=== PATIENT | female | born 1995 | race Caucasian/White ===

== ENCOUNTER 2020-07-14 10:10 | Observation (INO) ==
[2020-07-14] MEDS ORDERED: SODIUM CHLORIDE 0.9% 1000ML 2,000 ML IV ONE (11:22)
[2020-07-14] MEDS ORDERED: GI COCKTAIL ED USE PO ONE (11:22)
--- NOTE | 2020-07-14 11:30 | Emergency Department Note ---
Impression & Plan Eosinophilic esophagitis, Esophageal dysphagia, Leukopenia ED Provider Note NAME: SERGEI CALDERON AGE: 24 SEX: F : 1995 ARRIVES VIA: Walk-In INFORMANT: Patient ED PROVIDER(S): Jeff Duvall DO CHIEF COMPLAINT: trouble swallowing HPI: Patient is a 22-year-old female who presents to ER for trouble swallowing. She was diagnosed with EOE by [facility] about 2 weeks ago after an EGD which she had dilation. Recently over the past 48 hours she has been having increasing trouble swallowing which includes liquids. She was having food get stuck last night. She was able to get down a protein shake. She denies any headache or change in vision. No chest pain or shortness of breath. No nausea, vomiting, or diarrhea. No dysuria, urgency, or frequency. No other exacerbating or remitting factors. ROS: See above HPI for pertinent positives & negatives. A total of 10 systems reviewed and were otherwise negative. PAST MEDICAL HISTORY:See Below PAST SURGICAL HISTORY:See Below FAMILY HISTORY:See Below SOCIAL HISTORY:See Below HOME MEDICATIONS:See Below ALLERGIES:See Below VITALS:See Below PHYSICAL EXAMINATION: GENERAL: Sitting up in bed, alert, well appearing, well nourished, no distress, non-toxic EYE EXAM: normal conjunctiva. OROPHARYNX: no exudate, no erythema, lips, buccal mucosa, and tongue normal and mucous membranes are moist NECK: supple, no nuchal rigidity, no adenopathy, non-tender LUNGS: Clear to auscultation. Normal chest wall mechanics HEART: no murmurs, S1 normal and S2 normal ABDOMEN: abdomen soft, non-tender, normo-active bowel sounds, no masses, no rebound or guarding. UPPER EXTREMITIES: upper extremities are grossly normal. LOWER EXTREMITIES: No pitting edema. NEURO EXAM: Normal sensorium, cranial nerves II-XII grossly intact, normal speech, no gross weakness of arms, no gross weakness of legs. MEDICAL DECISION MAKING: Patient is a 24-year-old female with a past medical history eosinophilic esophagitis recently diagnosed and dilated within the past 2 weeks that presents the ER for trouble eating and drinking which started yesterday. IV was dosed blood work was obtained. Labs show mild leukopenia. No significant leukocytosis. BMP with mild hyponatremia 135. LFTs bilirubin was unremarkable. Lipase was unremarkable. UA was clean. Discussed with gastroenterology. They recommended admission for scope. Patient was given a GI cocktail which did help a little bit. She was given IV fluids. Discussed with hospitalist Dr. Chavez for further evaluation. Triage Nursing notes reviewed. Limited review of prior medical records performed Vital Signs: reviewed and remarkable for tachy Differential diagnosis: Differential diagnoses includes but is not limited to gastritis, peptic ulcer disease, GERD, gallbladder disease, pancreatitis, small bowel obstruction, acute coronary syndrome, pericarditis, ischemic bowel, irritable bowel disease, irritable bowel syndrome, appendicitis, diverticulitis, malignancy, hernia, urinary tract infection, torsion, perforation, trauma, infectious. ER treatment provided: See below Diagnostics interpreted by me: ECG: none Cardiac Monitoring: An order was placed for continuous cardiac monitoring. The monitor shows a rate of 82 with sinus rhythm. Laboratory studies: As stated above and show below. Imaging studies: Portable AP upright 1 view the chest shows no focal infiltrate or pneumothorax Consultation(s): Discussed with Dr. Rivera recommend admission for further evaluation Discussed with hospitalist for further evaluation Dr. Glasgow Procedures: none Critical Care: None Past Med/Surg History Medical History (Updated 07/14/20 @ 15:03 by Jeff Duvall DO) Dysphagia Eosinophilic esophagitis Surgical History History of wisdom tooth extraction Hx of sinus surgery Family History Grandmother (Maternal) Diabetes Grandfather (Paternal) Diabetes Heart disease Myocardial infarction Father Dyslipidemia Mother Dyslipidemia Other Breast cancer No family history of adverse response to anesthesia Denies family history of Ovarian cancer Prostate cancer Lung cancer Colorectal cancer Hypertension Social History Smoking Status: Never smoker Tobacco Type: E-cigarettes / Vaping Number of Years Since Quit: 2; Second Hand Exposure: No; Hx Alcohol Use: Yes Alcohol type: beer and hard liquor Alcohol Intake Frequency: 2-4 x/Month Hx Substance Use: No Preferred Language: Korean Communication Ability: Effective 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 Beliefs That Will Affect Care: None marital status: Single Current Living Situation: Alone current occupational status: employed and student 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 How many Children do You have: 0 Feels Safe at Home: Yes Assistive Devices: Contacts and Glasses Allergies Allergies Allergy/AdvReac Type Severity Reaction Status Date / Time pollen extracts Allergy Intermediate SNEEZING, Verified 07/14/20 11:55 CONGESTION Home Meds Home Medications Medication Instructions Recorded Confirmed norgestimate-ethinyl estradiol 1 tab PO HS 12/07/19 07/14/20 [Sprintec (28)] Previous Rx's Medication Instructions Recorded pantoprazole 40 mg tablet,delayed 40 mg PO BID #180 tab 07/04/20 release Results & Data (ED) Vital Signs Vital Signs - 24 hr 07/14/20 10:46 07/14/20 13:19 Temperature 36.4 C L Temperature Source Temporal Artery Scan Pulse Rate 101 H 87 Pulse Rate [Apical] 87 Pulse Rhythm Regular Pulse Rhythm [Apical] Regular Pulse Strength [Apical] Normal Respiratory Rate 18 18 Respiratory Effort / Characteristics Non-Labored Spontaneous Respiratory Depth Normal Respiratory Pattern Regular Blood Pressure 123/87 Blood Pressure [Left Arm] 114/73 Blood Pressure Mean 99 Blood Pressure Mean [Left Arm] 86 Blood Pressure Position [Left Arm] Semi-fowlers Pulse Oximetry 99 100 Oxygen Delivery Method Room Air Room Air Sepsis Recent Fever Within 48 Hours No Sepsis New/Unexplained Change in Mental Status N/A Sepsis Action Taken by Nursing No Action Required Laboratory Data Result diagrams: 07/14/20 11:17 07/14/20 11:17 Lab Results 07/14/20 07/14/20 07/14/20 Range/Units 11:17 11:17 11:17 WBC 4.75 L (4.8-10.8) K/uL RBC 4.83 (4.2-5.4) M/uL Hgb 14.7 (12.0-16.0) g/dL Hct 43.1 (37-47) % MCV 89.2 (80-100) fL MCH 30.4 (25-34) pg MCHC 34.1 (32-36) g/dL RDW Std Deviation 41.2 (36.4-46.3) fL RDW Coeff of Lisseth 12.7 (11.5-14.5) % Plt Count 301 (130-400) K/uL MPV 8.9 (7.4-10.4) fL Immature Gran % (Auto) 0.2 % Neut % (Auto) 53.7 % Lymph % (Auto) 31.4 % [place] % (Auto) 10.7 % Eos % (Auto) 3.6 % Baso % (Auto) 0.4 % Neut # (Auto) 2.55 (1.4-6.5) K/uL Lymph # (Auto) 1.49 (1.2-3.4) K/uL [place] # (Auto) 0.51 (0.11-0.59) K/uL Eos # (Auto) 0.17 (0-0.5) K/uL Baso # (Auto) 0.02 (0-0.2) K/uL Immature Gran # (Auto) 0.01 (0.00-0.02) K/uL Sodium 135 L (136-145) mmol/L Potassium 3.8 (3.5-5.1) mmol/L Chloride 105 (98-107) mmol/L Carbon Dioxide 26 (21-32) mmol/L Anion Gap 4.0 (3-11) BUN 12 (7-18) mg/dl Creatinine 0.80 (0.6-1.2) mg/dl Est Cr Clr Drug Dosing 102.6 ml/min Est GFR ( Amer) 121.3 ml/min Est GFR (Non-Af Amer) 104.7 ml/min BUN/Creatinine Ratio 14.5 (10-20) Glucose 89 (70-99) mg/dl Calcium 9.5 (8.5-10.1) mg/dl Total Bilirubin 0.4 (0.2-1) mg/dl AST 16 (15-37) U/L ALT 30 (12-78) U/L Alkaline Phosphatase 69 (45-117) U/L Total Protein 8.2 (6.4-8.2) gm/dl Albumin 4.0 (3.4-5.0) gm/dl Globulin 4.2 H (2.5-4.0) gm/dl Albumin/Globulin Ratio 1.0 (0.9-2) Lipase 124 (73-393) U/L Urine Color Yellow Urine Appearance Clear (Clear) Urine pH 8.0 H (4.5-7.5) Ur Specific [place] 1.009 (1.000-1.030) Urine Protein Negative (Negative) Urine Glucose (UA) Negative (Negative) Urine Ketones Negative (Negative) Urine Blood Negative (Negative) Urine Nitrite Negative (Negative) Urine Bilirubin Negative (Negative) Urine Urobilinogen Negative (Negative) Ur Leukocyte Esterase Trace H (Negative) Urine WBC (Auto) 1-5 (0-5) /hpf Urine RBC (Auto) 0-4 (0-4) /hpf U Hyaline Cast (Auto) 1-5 (0-5) /lpf U Epithel Cells (Auto) >30 H (0-5) /lpf Urine Bacteria (Auto) Negative (Negative) COVID-19 Eval Order SARS-CoV-2 (PCR) (Negative) 07/14/20 07/14/20 Range/Units 13:18 13:18 WBC (4.8-10.8) K/uL RBC (4.2-5.4) M/uL Hgb (12.0-16.0) g/dL Hct (37-47) % MCV (80-100) fL MCH (25-34) pg MCHC (32-36) g/dL RDW Std Deviation (36.4-46.3) fL RDW Coeff of Lisseth (11.5-14.5) % Plt Count (130-400) K/uL MPV (7.4-10.4) fL Immature Gran % (Auto) % Neut % (Auto) % Lymph % (Auto) % [place] % (Auto) % Eos % (Auto) % Baso % (Auto) % Neut # (Auto) (1.4-6.5) K/uL Lymph # (Auto) (1.2-3.4) K/uL [place] # (Auto) (0.11-0.59) K/uL Eos # (Auto) (0-0.5) K/uL Baso # (Auto) (0-0.2) K/uL Immature Gran # (Auto) (0.00-0.02) K/uL Sodium (136-145) mmol/L Potassium (3.5-5.1) mmol/L Chloride (98-107) mmol/L Carbon Dioxide (21-32) mmol/L Anion Gap (3-11) BUN (7-18) mg/dl Creatinine (0.6-1.2) mg/dl Est Cr Clr Drug Dosing ml/min Est GFR ( Amer) ml/min Est GFR (Non-Af Amer) ml/min BUN/Creatinine Ratio (10-20) Glucose (70-99) mg/dl Calcium (8.5-10.1) mg/dl Total Bilirubin (0.2-1) mg/dl AST (15-37) U/L ALT (12-78) U/L Alkaline Phosphatase (45-117) U/L Total Protein (6.4-8.2) gm/dl Albumin (3.4-5.0) gm/dl Globulin (2.5-4.0) gm/dl Albumin/Globulin Ratio (0.9-2) Lipase (73-393) U/L Urine Color Urine Appearance (Clear) Urine pH (4.5-7.5) Ur Specific [place] (1.000-1.030) Urine Protein (Negative) Urine Glucose (UA) (Negative) Urine Ketones (Negative) Urine Blood (Negative) Urine Nitrite (Negative) Urine Bilirubin (Negative) Urine Urobilinogen (Negative) Ur Leukocyte Esterase (Negative) Urine WBC (Auto) (0-5) /hpf Urine RBC (Auto) (0-4) /hpf U Hyaline Cast (Auto) (0-5) /lpf U Epithel Cells (Auto) (0-5) /lpf Urine Bacteria (Auto) (Negative) COVID-19 Eval Order Covid19 at [facility] SARS-CoV-2 (PCR) NEGATIVE (Negative) Administered Medications Discontinued Medications Al Hydrox/Mg Hydrox/Simethicone (Gi Cocktail Ed Use) 1 dose PO ONE ONE Stop: 07/14/20 11:23 Last Admin: 07/14/20 11:48 Dose: 1 dose Documented by: [id number] Sodium Chloride (Nss 1000ml) 2,000 mls @ 999 mls/hr IV .Q2H1M ONE Stop: 07/14/20 13:22 Last Infusion: 07/14/20 13:55 Dose: 0 mls/hr Documented by: [id number] Admin: 07/14/20 11:48 Dose: 999 mls/hr Documented by: [id number] Imaging Data Radiologist's Impression: Chest X-Ray 07/14/20 12:57 XR chest 1V portable CLINICAL HISTORY: Preadmission chest x-ray. Respiratory symptoms worrisome for Covid 19 infection COMPARISON STUDY: No previous studies for comparison. FINDINGS: The cardiac and mediastinal contours are normal. There is no evidence of focal pulmonary consolidation. There is no evidence of failure. No pleural effusions are visualized.[ IMPRESSION: No active disease in the chest. ACT 112: Negative or not required by law. Electronically signed by: Leon Pettit M.D. 07/14/2020 1:36 PM Discharge Plan Visit Data Chief Complaint: Throat Pain Stated Complaint: CANT SWALLOW ED Provider: Jeff Duvall Discharge Problem: Eosinophilic esophagitis, Esophageal dysphagia, Leukopenia Forms Stand Alone Forms: [facility] [place] Prescriptions Prescriptions: No Action pantoprazole 40 mg tablet,delayed release (DR/EC) 40 mg PO BID Qty: 180 RF: 3 norgestimate-ethinyl estradiol [Sprintec (28)] 0.25-35 mg-mcg Tablet 1 tab PO HS RF: 0 Discharge Problem: Leukopenia Qualifiers: Leukopenia type: unspecified Qualified Code(s): D72.819 - Decreased white blood cell count, unspecified
[2020-07-14 11:55] LABS: BUN Creatinine Ratio 14.5 (10-20); Calcium 9.5 mg/dl (8.5-10.1); Creatinine Clr Calc Pharmacy 102.6 ml/min; Est GFR (African American) 121.3 ml/min; Est GFR (Non-African American) 104.7 ml/min; Potassium 3.8 mmol/L (3.5-5.1)
[2020-07-14 11:57] LABS: Bilirubin,Total 0.4 mg/dl (0.2-1); Globulin 4.2 gm/dl (2.5-4.0); Total Protein 8.2 gm/dl (6.4-8.2)
[2020-07-14 12:04] LABS: Appearance Urine Clear (Clear); Bacteria Urine Automated Negative (Negative); Bilirubin Urine Negative (Negative); Blood Urine Negative (Negative); Color Urine Yellow; Epithelial Cell Urine Auto >30 /lpf (0-5); Glucose Urine UA Negative (Negative); Ketones Urine Negative (Negative); Leukocyte Esterase Urine Trace (Negative); Nitrite Urine Negative (Negative); Protein Urine Negative (Negative); RBC Urine Automated 0-4 /hpf (0-4); Specific Gravity Urine 1.009 (1.000-1.030); Urobilinogen Urine Negative (Negative)
[2020-07-14 12:13] LABS: Basophils # (auto) 0.02 K/uL (0-0.2); Basophils % (auto) 0.4 %; Eosinophils # (auto) 0.17 K/uL (0-0.5); Eosinophils % (auto) 3.6 %; Hematocrit (blood only) 43.1 % (37-47); Hemoglobin 14.7 g/dL (12.0-16.0); Immature Granulocytes # (auto) 0.01 K/uL (0.00-0.02); Immature Granulocytes % (auto) 0.2 %; Lymphocytes # (auto) 1.49 K/uL (1.2-3.4); Lymphocytes % (auto) 31.4 %; Mean Corpuscular Hemoglobin 30.4 pg (25-34); Mean Corpuscular Hgb Conc 34.1 g/dL (32-36); Mean Corpuscular Volume 89.2 fL (80-100); Mean Platelet Volume 8.9 fL (7.4-10.4); Monocytes # (auto) 0.51 K/uL (0.11-0.59); Monocytes % (auto) 10.7 %; Neutrophils # (auto) 2.55 K/uL (1.4-6.5); Neutrophils % (auto) 53.7 %; Platelet Count 301 K/uL (130-400); RDW Coefficient of Variation 12.7 % (11.5-14.5); RDW Standard Deviation 41.2 fL (36.4-46.3); Red Blood Count 4.83 M/uL (4.2-5.4); White Blood Count 4.75 K/uL (4.8-10.8)
--- NOTE | 2020-07-14 13:37 | XRay Report ---
XR chest 1V portable CLINICAL HISTORY: Preadmission chest x-ray. Respiratory symptoms worrisome for Covid 19 infection COMPARISON STUDY: No previous studies for comparison. FINDINGS: The cardiac and mediastinal contours are normal. There is no evidence of focal pulmonary co nsolidation. There is no evidence of failure. No pleural effusions are visualized.[ IMPRESSION: No active disease in the chest. ACT 112: Negative or not required by law. Electronically signed by: Leon Pettit M.D. 07/14/2020 1:36 PM
--- NOTE | 2020-07-14 14:11 | History & Physical Report ---
Date of Service July 14, 2020 Assessment & Plan (1) Eosinophilic esophagitis: Placed in a monitored observation GI has already been consulted, plan for EGD and dilatation tomorrow Continue medications for now including pantoprazole Okay for diet if tolerated, will make n.p.o. after midnight (2) Seasonal allergic rhinitis: Will order Zyrtec as per patient's request History of Present Illness Chief Complaint: Dysphagia Primary Care Provider: Otto Sturat DO This is a 24-year-old female with past medical history of recently diagnosed eosinophilic esophagitis that presents today complaining dysphagia. Patient is coming by her mother and both are good historians. Patient had some issues earlier this month, she had an EGD with GI. Biopsy results showed EOE and the patient had esophageal dilatation. Patient tells me that she did very well with this until 2-3 days ago when she started having some dysphagia. This has become severe and she can no longer swallow more than small amounts of fluids. She contacted her GI and was told to come to the emergency room for admission for repeat dilatation. The time my evaluation, patient does not appear to be in any distress. She is already spoken to GI and she has plans for dilation tomorrow. She is requesting Zyrtec as she has ongoing seasonal allergies which have been quite severe in the past. Patient has no other complaints it does not appear to be in any significant distress. Allergies Allergy/AdvReac Type Severity Reaction Status Date / Time pollen extracts Allergy Intermediate SNEEZING, Verified 07/14/20 11:55 CONGESTION Home Medications Medication Instructions Recorded Confirmed Type norgestimate-ethinyl estradiol 1 tab PO HS 12/07/19 07/14/20 History [Sprintec (28)] pantoprazole 40 mg tablet,delayed 40 mg PO BID #180 tab 07/04/20 07/14/20 Rx release Past Med/Surg History Medical History (Updated 07/14/20 @ 14:06 by Lul Chavez DO) Dysphagia Eosinophilic esophagitis Surgical History History of wisdom tooth extraction Hx of sinus surgery Family History Grandmother (Maternal) Diabetes Grandfather (Paternal) Diabetes Heart disease Myocardial infarction Father Dyslipidemia Mother Dyslipidemia Other Breast cancer No family history of adverse response to anesthesia Denies family history of Ovarian cancer Prostate cancer Lung cancer Colorectal cancer Hypertension Social History Smoking Status: Never smoker Tobacco Type: E-cigarettes / Vaping Number of Years Since Quit: 2; Second Hand Exposure: No; Hx Alcohol Use: Yes Alcohol type: beer and hard liquor Alcohol Intake Frequency: 2-4 x/Month Hx Substance Use: No Preferred Language: Grenadian Communication Ability: Effective 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 Beliefs That Will Affect Care: None marital status: Single Current Living Situation: Alone current occupational 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 How many Children do You have: 0 Feels Safe at Home: Yes Assistive Devices: Contacts and Glasses Review of Systems Constitutional: no fever, no chills, no weakness, no weight loss and no weight gain Eyes: as per Subjective / HPI Ear, Nose, Mouth, Throat: + nasal congestion and + post nasal drip Respiratory: + sputum production; no cough, no chest congestion, no dyspnea and no dyspnea on exertion Cardiovascular: no chest pain, no orthopnea, no palpitations, no lightheadedness and no edema Gastrointestinal: + heartburn and + dysphagia; no abdominal pain, no nausea, n o vomiting, no constipation and no diarrhea/loose stools Genitourinary: no dysuria, no difficulty urinating, no urinary frequency, no urinary hesitancy, no urinary urgency and no flank pain Musculoskeletal: no back pain, no neck pain, no joint pain, no stiffness and no myalgia Integumentary: no rash Neurologic: no gait abnormality, no unsteadiness, no falls and no generalized weakness Physical Exam Constitutional: cooperative and comfortable; no acute distress Neck: trachea midline, no thyromegaly Respiratory: normal respiratory effort Auscultation: lungs clear to auscultation bilaterally; no crackles, no rales, no rhonchi and no wheezes Cardiovascular: Rate/Rhythm: regular rate and regular rhythm Heart Sounds: normal S1 and normal S2; no murmur Gastrointestinal (Abdomen): Inspection/Auscultation: abdomen normal to inspection Percussion/Palpation: abdomen soft; abdomen nontender, no guarding, abdomen not rigid and no hepatosplenomegaly Skin: no rashes, warm and dry Results & Data Results & Data ([facility]) Vital Signs (Past 12 Hours) Vital Signs Temp Pulse Pulse Resp BP BP Pulse Ox 07/14/20 13:19 87 87 18 114/73 100 07/14/20 10:46 36.4 C L 101 H 18 123/87 99 PG Care Time/CCT Total # of Minutes Spent Total Time Spent with Patient: Total time spent is greater than 50% in coordination of care (as documented) at patient's floor/unit and/or counseling patient: Coding Level of Care Code 95832 OBS Care - Level 3 Diagnoses Eosinophilic esophagitis K20.0 Seasonal allergic rhinitis J30.2
[2020-07-14] MEDS: CETIRIZINE HCL 10 MG TABLET PO SCH (15:26)
[2020-07-14] MEDS: PANTOprazole 40 MG TAB PO SCH (20:26)
[2020-07-15] MEDS ORDERED: LACTATED RINGER'S 1,000 ML IV SCH (01:00)
[2020-07-15 05:53] LABS: Basophils # (auto) 0.03 K/uL (0-0.2); Basophils % (auto) 0.6 %; Eosinophils # (auto) 0.37 K/uL (0-0.5); Eosinophils % (auto) 7.2 %; Hematocrit (blood only) 39.9 % (37-47); Hemoglobin 13.3 g/dL (12.0-16.0); Immature Granulocytes # (auto) 0.01 K/uL (0.00-0.02); Immature Granulocytes % (auto) 0.2 %; Lymphocytes # (auto) 2.29 K/uL (1.2-3.4); Lymphocytes % (auto) 44.4 %; Mean Corpuscular Hemoglobin 30.6 pg (25-34); Mean Corpuscular Hgb Conc 33.3 g/dL (32-36); Mean Corpuscular Volume 91.7 fL (80-100); Mean Platelet Volume 8.8 fL (7.4-10.4); Monocytes # (auto) 0.61 K/uL (0.11-0.59); Monocytes % (auto) 11.8 %; Neutrophils # (auto) 1.85 K/uL (1.4-6.5); Neutrophils % (auto) 35.8 %; Platelet Count 280 K/uL (130-400); RDW Coefficient of Variation 12.9 % (11.5-14.5); RDW Standard Deviation 43.6 fL (36.4-46.3); Red Blood Count 4.35 M/uL (4.2-5.4); White Blood Count 5.16 K/uL (4.8-10.8)
[2020-07-15 06:35] LABS: Calcium 8.7 mg/dl (8.5-10.1); Est GFR (African American) 149.1 ml/min; Est GFR (Non-African American) 128.7 ml/min; Magnesium 2.1 mg/dl (1.8-2.4); Potassium 4.2 mmol/L (3.5-5.1)
--- NOTE | 2020-07-15 08:38 | Anesthesiology Consultation ---
Date of Service July 15, 2020 Assessment & Plan Chart Review Chart Review: Acceptable Risk for Surgery, Patient NOT seen in Pre Admission Testing and entry level accounting clerk initiated Consults Requested none History Surgery Operation Date: 07/15/20 16:30 Proposed Procedures p Esophagogastroduodenoscopy Dr. Nicole Rivera MD Height/Weight Height: 5 ft 3 in Weight: 68.039 kg Allergies Allergy/AdvReac Type Severity Reaction Status Date / Time pollen extracts Allergy Intermediate SNEEZING, Verified 07/14/20 11:55 CONGESTION Medications Home Medications Medication Instructions Recorded Confirmed Last Taken norgestimate-ethinyl estradiol 1 tab PO HS 12/07/19 07/14/20 07/13/20 [Sprintec (28)] pantoprazole 40 mg tablet,delayed 40 mg PO BID #180 tab 07/04/20 07/14/20 07/14/20 release Active Medications Generic Name Dose Route Start Last Admin Trade Name Freq PRN Reason Stop Dose Admin Cetirizine HCl 10 mg 07/14/20 14:15 07/14/20 15:26 Cetirizine Hcl 10 Mg Tablet PO 08/13/20 14:14 10 mg QAM JOYCE Administration Lactated Ringer's 1,000 mls @ 80 mls/hr 07/15/20 01:00 07/15/20 01:14 Lr IV 07/15/20 19:44 80 mls/hr .[id number] JOYCE Administration Pantoprazole Sodium 40 mg 07/14/20 21:00 07/14/20 20:26 Pantoprazole 40 Mg Tab PO 08/13/20 20:59 40 mg BID JOYCE Administration NPO Date Last Intake of Fluids: 07/14/20 Time Last Intake of Fluids: 23:59 Date Last Intake of Solids: 07/14/20 Time Last Intake of Solids: 23:59 Past Medical History Medical History (Updated 07/15/20 @ 08:34 by Lee Wolff MD) Dysphagia Eosinophilic esophagitis Esophageal dysphagia Past Family History Family History Grandmother (Maternal) Diabetes Grandfather (Paternal) Diabetes Heart disease Myocardial infarction Father Dyslipidemia Mother Dyslipidemia Other Breast cancer No family history of adverse response to anesthesia Denies family history of Ovarian cancer Prostate cancer Lung cancer Colorectal cancer Hypertension Past Surgical History Surgical History History of wisdom tooth extraction Hx of sinus surgery Social History Smoking Status: Never smoker Do You Dip or Chew Tobacco: No Hx Alcohol Use: Yes Alcohol type: beer and hard liquor alcohol intake frequency: a few times a month Hx Substance Use: No substance use type: does not use Physical Exam Vital Signs Last Vital Signs Temp 37.2 C 07/15/20 07:56 Pulse 66 07/15/20 07:56 Resp 16 07/15/20 07:56 BP 100/68 07/15/20 07:56 Pulse Ox 97 07/15/20 07:56 Testing Laboratory Results 07/15/20 05:25 07/15/20 05:25 Urine Color Yellow 07/14/20 11:17 Urine Appearance Clear (Clear) 07/14/20 11:17 Urine pH 8.0 (4.5-7.5) H 07/14/20 11:17 Ur Specific [place] 1.009 (1.000-1.030) 07/14/20 11:17 Urine Protein Negative (Negative) 07/14/20 11:17 Urine Glucose (UA) Negative (Negative) 07/14/20 11:17 Urine Ketones Negative (Negative) 07/14/20 11:17 Urine Nitrite Negative (Negative) 07/14/20 11:17 Ur Leukocyte Esterase Trace (Negative) H 07/14/20 11:17 Urine WBC (Auto) 1-5 /hpf (0-5) 07/14/20 11:17 Urine RBC (Auto) 0-4 /hpf (0-4) 07/14/20 11:17 U Hyaline Cast (Auto) 1-5 /lpf (0-5) 07/14/20 11:17 U Epithel Cells (Auto) >30 /lpf (0-5) H 07/14/20 11:17 Urine Bacteria (Auto) Negative (Negative) 07/14/20 11:17 Chest X-Ray XR chest 1V portable CLINICAL HISTORY: Preadmission chest x-ray. Respiratory symptoms worrisome for Covid 19 infection COMPARISON STUDY: No previous studies for comparison. FINDINGS: The cardiac and mediastinal contours are normal. There is no evidence of focal pulmonary consolidation. There is no evidence of failure. No pleural effusions are visualized.[ IMPRESSION: No active disease in the chest.
[2020-07-15] MEDS: CETIRIZINE HCL 10 MG TABLET PO SCH (09:03)
[2020-07-15] MEDS: PANTOprazole 40 MG TAB PO SCH (09:04)
--- NOTE | 2020-07-15 09:30 | Gastrointestinal Consultation ---
Date of Consultation July 15, 2020 Assessment & Plan (1) Eosinophilic esophagitis: (2) Esophageal dysphagia: 1. Strict NPO for now. 2. EGD with Dr. Rivera today for further evaluation and possible repeat dilation if needed. 3. Continue Pantoprazole 40 mg BID. 4. Continue supportive care. Thank you for allowing us to participate in the care of this pleasant patient. If you have any questions or concerns, please do not hesitate to contact us. Supervising Physician Co-Signing Physician Notes I personally evaluated the patient and agree with the findings as documented by MARQUIS Silvestre Exam: abd: soft, nt, nd Proceed with EGD. risks/benefits and procedure discussed with patient, who agrees to proceed History of Present Illness Reason for Consultation: Dysphagia Requesting Physician: Dr. Chavez Attending Physician: Rich Mcfarland History of Present Illness Patient is a 24 y.o. female with a history of EoE admitted with throat tightness per her report. States she has been having increased chest pressure and belching after eating since her recent EGD with dilation by Dr. Toney several weeks ago. She was concerned about the throat tightness, prompting ER evaluation. She d enies any true dysphagia or odynophagia. Last oral intake was liquids at 2200 last evening. She remains NPO for now. Has been taking Pantoprazole 40 mg BID. Denies any current CP, SOB, abdominal pain, nausea or vomiting, melena, hematochezia or fatigue. Allergies Allergy/AdvReac Type Severity Reaction Status Date / Time pollen extracts Allergy Intermediate SNEEZING, Verified 07/14/20 11:55 CONGESTION Home Medications Medication Instructions Recorded Confirmed Type norgestimate-ethinyl estradiol 1 tab PO HS 12/07/19 07/14/20 History [Sprintec (28)] pantoprazole 40 mg tablet,delayed 40 mg PO BID #180 tab 07/04/20 07/14/20 Rx release Patient History Medical History Dysphagia Eosinophilic esophagitis Esophageal dysphagia Surgical History History of wisdom tooth extraction Hx of sinus surgery Family History Grandmother (Maternal) Diabetes Grandfather (Paternal) Diabetes Heart disease Myocardial infarction Father Dyslipidemia Mother Dyslipidemia Other Breast cancer No family history of adverse response to anesthesia Denies family history of Ovarian cancer Prostate cancer Lung cancer Colorectal cancer Hypertension Social History Smoking Status: Never smoker Tobacco Type: E-cigarettes / Vaping Number of Years Since Quit: 2; Second Hand Exposure: Yes (slight exposure); Do You Dip or Chew Tobacco: No; Hx Alcohol Use: Yes Alcohol type: beer and hard liquor Alcohol Intake Frequency: 2-4 x/Month Hx Substance Use: No Preferred Language: Romanian Communication Ability: Effective Home Service Demonstrator Required: No Beliefs That Will Affect Care: None marital status: Single Current Living Situation: Parent current occupational status: employed and student 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 How many Children do You have: 0 Other Information That Helps Us Care for You: No Feels Safe at Home: Yes Safety Concerns: Feels Safe At This Time Assistive Devices: None Review of Systems Review of Systems: All systems reviewed & are unremarkable except as noted in HPI & below Physical Exam Constitutional: WD/WN, vitals as above Eyes: EOM intact bilaterally Neck: normal appearance Respiratory: normal respiratory effort, lungs clear to auscultation Cardiovascular: Rate/Rhythm: regular rate and regular rhythm Heart Sounds: no gallop and no murmur Gastrointestinal (Abdomen): normal bowel sounds, soft, nontender, no hepatosplenomegaly Inspection/Auscultation: abdomen not distended Musculoskeletal: Extremities: no cyanosis no lower extremity edema Skin: no rashes, warm and dry Neurologic: moves all extremities Psychiatric: A+Ox3, euthymic affect Results & Data ([facility]) Vital Signs (Past 12 Hours) Vital Signs Temp Pulse Resp BP Pulse Ox 07/15/20 07:56 37.2 C 66 16 100/68 97 07/14/20 22:38 37.0 C 85 18 112/72 98 Laboratory Results Abnormal lab results 07/14/20 07/14/20 07/14/20 Range/Units 11:17 11:17 11:17 WBC 4.75 L (4.8-10.8) K/uL Rice # (Auto) (0.11-0.59) K/uL Sodium 135 L (136-145) mmol/L Chloride (98-107) mmol/L Globulin 4.2 H (2.5-4.0) gm/dl Urine pH 8.0 H (4.5-7.5) Ur Leukocyte Esterase Trace H (Negative) U Epithel Cells (Auto) >30 H (0-5) /lpf 07/15/20 07/15/20 Range/Units 05:25 05:25 WBC (4.8-10.8) K/uL Rice # (Auto) 0.61 H (0.11-0.59) K/uL Sodium (136-145) mmol/L Chloride 110 H (98-107) mmol/L Globulin (2.5-4.0) gm/dl Urine pH (4.5-7.5) Ur Leukocyte Esterase (Negative) U Epithel Cells (Auto) (0-5) /lpf PG Care Time/CCT Total # of Minutes Spent Total Time Spent with Patient: Total time spent is greater than 50% in coordination of care (as documented) at patient's floor/unit and/or counseling patient: Coding Level of Care Code 47971 Office/OBS Consult Lvl 4 Diagnoses Eosinophilic esophagitis K20.0 Esophageal dysphagia R13.10
[2020-07-15] MEDS ORDERED: PROPOFOL IV EMULSION 10 MG/ML 20 ML VIAL IV ONE ×2 (11:45→12:25)
[2020-07-15] MEDS ORDERED: LIDOCAINE 2% 2 ML VIAL/AMP(20MG/ML) INFIL ONE (11:45)
--- NOTE | 2020-07-15 12:25 | GI REPORT ---
Patient Name: Antonella Green Procedure Date: 07/15/2020 12:06 PM Date of : 1995 Admit Type: Inpatient Age: 24 Gender: Female Attending MD: Guzman Rivera MD Procedure: Upper GI endoscopy Providers: Guzman Rivera MD Referring MD: Referred Self, Rich Mcfarland M.d. Indications: Dysphagia Medicines: Monitored Anesthesia Care Complications: No immediate complications. Estimated blood loss: None. Estimated Blood Loss: Estimated blood loss: none. Procedure: Pre-Anesthesia Assessment: - Prior Anticoagulants: The patient has taken no previous anticoagulant or antiplatelet agents. - ASA Grade Assessment: II - A patient with mild systemic disease. After obtaining informed consent, the endoscope was passed under direct vision. Throughout the procedure, the patient's blood pressure, pulse, and oxygen saturations were monitored continuously. The Endoscope was introduced through the mouth, and advanced to the second part of duodenum. The upper GI endoscopy was accomplished without difficulty. The patient tolerated the procedure well. Findings: One benign-appearing, intrinsic mild stenosis was found in the distal esophagus at the GE junction. The stenosis was traversed. A TTS dilator was passed through the scope. Dilation with an 18-19-20 mm balloon dilator was performed to 20 mm. The dilation site was examined following endoscope reinsertion and showed mild mucosal disruption. Estimated blood loss: none. The entire examined stomach was normal. The duodenal bulb and second portion of the duodenum were normal. Impression: - Benign-appearing esophageal stenosis. Dilated. - Normal stomach. - Normal duodenal bulb and second portion of the duodenum. - No specimens collected. Recommendation: - [facility]. - Soft diet today and for the next 2-3 days. -continue protonix BID Guzman Rivera MD 07/15/2020 12:25:00 PM This report has been signed electronically. Note Initiated On: 07/15/2020 12:06 PM Number of Addenda: 0 I attest to the content of the Intraoperative Record and orders documented therein, exceptions below {[id number]}
--- NOTE | 2020-07-15 12:35 | Anesthesiology Progress Note ---
Date of Service July 15, 2020 Anesthesia Post Procedure Vital Signs Vital Signs: Temp Pulse Pulse Pulse Resp BP BP 07/15/20 12:25 64 18 101/52 L 07/15/20 11:40 36.7 C 81 81 18 104/76 07/15/20 11:36 37.1 C 89 16 142/77 H 07/15/20 07:56 37.2 C 66 16 100/68 07/14/20 22:38 37.0 C 85 18 112/72 07/14/20 19:50 07/14/20 16:03 36.7 C 74 18 107/75 07/14/20 14:00 78 16 104/69 07/14/20 13:19 87 87 18 114/73 Pulse Ox Pulse Ox 07/15/20 12:25 97 07/15/20 11:40 100 07/15/20 11:36 99 07/15/20 07:56 97 07/14/20 22:38 98 07/14/20 19:50 98 07/14/20 16:03 98 07/14/20 14:00 100 07/14/20 13:19 100 Pain Intensity Throat: Pain Intensity: 0 Transfer of Care Handoff Completed per policy Notes Mental Status: alert / awake / arousable and participated in evaluation Patient Amnestic to Procedure: Yes Nausea / Vomiting: adequately controlled Pain: adequately controlled Airway Patency, RR, SpO2: stable & adequate BP & HR: stable & adequate Hydration State: stable & adequate Anesthetic Complications: no major complications apparent and Pt Satisfied with anesthetic care
--- NOTE | 2020-07-20 22:53 | Discharge Summary ---
Date of Service July 15, 2020 Admission HPI Per Admitting Provider This is a 24-year-old female with past medical history of recently diagnosed eosinophilic esophagitis that presents today complaining dysphagia. Patient is coming by her mother and both are good historians. Patient had some issues earlier this month, she had an EGD with GI. Biopsy results showed EOE and the patient had esophageal dilatation. Patient tells me that she did very well with this until 2-3 days ago when she started having some dysphagia. This has become severe and she can no longer swallow more than small amounts of fluids. She contacted her GI and was told to come to the emergency room for admission for repeat dilatation. The time my evaluation, patient does not appear to be in any distress. She is already spoken to GI and she has plans for dilation tomorrow. She is requesting Zyrtec as she has ongoing seasonal allergies which have been quite severe in the past. Patient has no other complaints it does not appear to be in any significant distress. Principal Diagnosis Eosinophilic esophagitis Discharge Exam Constitutional: cooperative and comfortable; no acute distress Neck: trachea midline, no thyromegaly Respiratory: normal respiratory effort Auscultation: lungs clear to auscultation bilaterally; no crackles, no rales, no rhonchi and no wheezes Cardiovascular: Rate/Rhythm: regular rate and regular rhythm Heart Sounds: normal S1 and normal S2; no murmur Gastrointestinal (Abdomen): Inspection/Auscultation: abdomen normal to inspection Percussion/Palpation: abdomen soft; abdomen nontender, no guarding, abdomen not rigid and no hepatosplenomegaly Skin: no rashes, warm and dry Discharge Data Allergies Allergy/AdvReac Type Severity Reaction Status Date / Time pollen extracts Allergy Intermediate SNEEZING, Verified 07/20/20 11:32 CONGESTION Consultations 07/14/20 13:16 ED Decision to Admit Stat 07/14/20 16:00 Consult Gastroenterology Routine Procedures Performed Operation Date: 07/15/20 16:30 Actual Procedures p EGD Dilatation - Guzman Rivera MD Hospital Course (1) Eosinophilic esophagitis: On admission: Placed in a monitored observation GI has already been consulted, plan for EGD and dilatation tomorrow Continue medications for now including pantoprazole Okay for diet if tolerated, will make n.p.o. after midnight On discharge: EGD completed: - Benign-appearing esophageal stenosis. Dilated. - Normal stomach. - Normal duodenal bulb and second portion of the duodenum. - No specimens collected. Recommendation: - Soft diet today and for the next 2-3 days. -continue protonix BID -Followup with Dr. Toney. (2) Seasonal allergic rhinitis: Will order Zyrtec as per patient's request Total Time Total Time Spent Total Time Spent (In Minutes): 32 Total Time Includes: Examination of the Patient, Discharge Planning and Medication Reconciliation Discharge Plan Discharge Items Patient Disposition: Home - Self-Care Reason For Visit: DYSPHAGIA Discharge Diagnosis: Dysphagia Activity: Resume your previous activity Non-emergency contact: Primary Care Provider Call non-emergency contact if: you have any medication questions Follow-up/Referrals: Abel Toney DO [Physician] - (schedule in 2-4 weeks ) Otto Stuart DO [Primary Care Provider] - 07/20/20 11:30 am Diet: Regular Diet Texture: Dental soft (bite-sized) Addtl Attending Provider Instructions: You had an upper GI scope. You were found to have a stenosis (blockage) which was dilated. Thankfully, your stomach and duodenum looked quite healthy/ - Soft diet today and for the next 2-3 days. -continue protonix twice a day. recommend followup with PCP in 2-4 weeks for repeat blood work. Followup with Dr. Toney and an outpatient in 2-4 weeks. Pending Studies at Discharge: No Visit Report Forms: Smoking Cessation Stand-Alone Forms: My [facility] [employer], Work/School Release, Smoking Cessation Medications and DC Order Prescriptions: Continued pantoprazole 40 mg tablet,delayed release (DR/EC) 40 mg PO BID Qty: 180 RF: 3 norgestimate-ethinyl estradiol [Sprintec (28)] 0.25-35 mg-mcg Tablet 1 tab PO HS RF: 0 No Action cetirizine [Zyrtec] 10 mg tablet 10 mg PO DAILY PRNRF: 0 hydroxyzine HCl 25 mg tablet 25 mg PO BID PRN (Reason: anxiety) Qty: 30 RF: 1 Discharge Orders: Discharge Order (Routine); Ordered 07/15/20 Ordered By: Rich William/Other Patient Handouts: Dysphagia: Exercises, Larynx Exercises, Larynx- Lifting Exercises for Dysphagia, Dysphagia Tongue Strengthen Exercise Admission Data Admit Date/Time: 07/14/20 14:09 Attending Provider: Rich Mcfarland Admit Provider: Lul Chavez Primary Care Provider: Otto Stuart Other Providers: Lul Chavez ; Guzman Rivera Other Interventions: Discharge Summary Assessment (RN) Last Done: 07/15/20 17:48 Coding Level of Care Code 75730 OBS Care - Discharge Diagnoses Eosinophilic esophagitis K20.0 Seasonal allergic rhinitis J30.2 Time Spent (min) 32
== END 2020-07-15 17:54 | disposition home or self-care (01) ==
LOC: 3N 10:10 → ED 10:10 → SUATTDRO 14:09 → 3N 15:28